=== PATIENT | female | born 1955 | race Caucasian/White ===

== ENCOUNTER 2017-06-28 13:31 | Inpatient (IN) | payer MEDICAID ==
[2017-06-28] MEDS ORDERED: SODIUM CHLORIDE 0.9% 500 ML IV ONE (13:53)
--- NOTE | 2017-06-28 14:00 | Emergency Department Record ---
History of Present Illness - General Chief Complaint: Abdominal Pain Stated Complaint: ABDOMINAL PAIN Time Seen by Provider: 06/28/17 13:49 Source: Patient Mode of Arrival: Ambulatory Limitations: No limitations - History of Present Illness Initial Comments: The patient is here due to a 2 week hx of LLQ cramping intermittent AP. The pain waxes and wanes. She denies any nausea, vomiting, diarrhea or dysuria with the pain. She also states she had a fever last night but that today it is better. The patient denies any hx of similar issues or problems and has had no previous abdominal surgeries. MD Complaint: Abdominal pain Onset/Timin -: Days(s) Radiation: LLQ Quality: Cramping, Sharp, Stabbing Associated Symptoms: Chills, Fever - Related Data Home Medications Medication Instructions Recorded Confirmed Last Taken Ibuprofen 200 mg Tablet [Motrin] 3 tab PO Q6H PRN 06/28/17 06/28/17 Unknown Allergies Allergy/AdvReac Type Severity Reaction Status Date / Time morphine Allergy Severe ANAPHYLAXIS Verified 06/28/17 17:56 codeine Allergy Intermediate NAUSEA AND Verified 06/28/17 17:56 VOMITING Travel Screening - Travel/Exposure Within Last 30 Days Have you traveled within the last 30 days?: No - Travel/Exposure Within Last Year Have you traveled outside the [place] in the last year?: No - Additonal Travel Details Have you been exposed to anyone with a communicable illness?: No - Travel Symptoms Symptom Screening: None Review of Systems Constitutional: Denies: Chills, Fever Eyes: Denies: Eye discharge ENT: Denies: Congestion Respiratory: Denies: Cough, Dyspnea Past Medical History - SOCIAL HISTORY Smoking Status: Current every day smoker Alcohol Use: None Drug Use: None - RESPIRATORY Hx Respiratory Disorders: No - CARDIOVASCULAR Hx Cardio Disorders: Yes Hx Hypertension: Yes Comment:: angio plasty and stent in 2009 - NEURO Hx Neuro Disorders: No - GI Hx GI Disorders: Yes Hx Abdominal Pain: Yes - Hx Genitourinary Disorders: No - ENDOCRINE Hx Endocrine Disorders: No - MUSCULOSKELETAL Hx Musculoskeletal Disorders: No - PSYCH Hx Psych Problems: No - HEMATOLOGY/ONCOLOGY Hx Hematology/Oncology Disorders: No Family Medical History Any Significant Family History?: Yes Hx Cancer: Father *Cancer Comment: father had lung cancer Hx Heart Disease: Father *Heart Comment: father had open heart sx Hx Resp Disorders: Mother *Resp Comment: copd Physical Exam - General General Appearance: Alert, Oriented x3, Cooperative, No acute distress - Head Head exam: Atraumatic, Normocephalic, Normal inspection - Eye Eye exam: Normal appearance, PERRL - Neck Neck exam: Normal inspection, Full ROM. negative: Tenderness - Respiratory Respiratory exam: Normal lung sounds bilaterally. negative: Respiratory distress - Cardiovascular Cardiovascular Exam: Regular rate, Normal rhythm, Normal heart sounds - GI/Abdominal GI/Abdominal exam: Soft, Normal bowel sounds, Tenderness (There is very mild LLQ abdominal pain to palpation with no guarding or rebound.). negative: Distended, Guarding, Rebound, Rigid - Extremities Extremities exam: Normal inspection, Full ROM, Normal capillary refill. negative: Tenderness Course Vital Signs 06/28/17 13:37 Temperature 97.5 F L Pulse Rate 91 H Respiratory 18 Rate Blood Pressure 151/69 Pulse Ox 99 - Reevaluation(s) Reevaluation #1: The patient is doing better. She denies any need for any pain medicines at this time. I did discuss the CT results with her and the need for hospital admission and she did agree to the plan. 06/28/17 15:46 Reevaluation #2: I did discuss the case with Dr. Montes and he will consult on the case. He will review the CT with IR and possibly have the patient transferred [place] [facility] [place] if needed. I also did discuss the case with Hattie AGUERO) and she does accept the admission for Dr. Robertson. 06/28/17 16:04 06/28/17 17:32 Medical Decision Making - Data Complexity MDM Data: Labs Ordered and/or Reviewed, X-Ray Ordered and/or Reviewed - Lab Data Result diagrams: 06/28/17 13:53 06/28/17 12:31 - Radiology Data Radiology results: Report reviewed (CT: Sigmoid Diverticulitis with possible abscess deep in pelvis up to 3cm at the widest area. Neg for perforation.) Disposition Disposition: Admit Clinical Impression: Diverticulitis Disposition: Still a Patient at [facility] Decision to Admit: Admit from ER Decision to Admit Date: 06/28/17 Decision to Admit Time: 16:07 Accepting Physician: Ailyn Time Discussed w/Accepting Physician: 16:07 Condition: (2) Stable Time of Disposition: 16:07 Quality - Quality Measures Quality Measures: N/A - Blood Pressure Screening View Details: Yes Does Patient Have Any of the Following: No Blood Pressure Classification: Hypertensive Reading Systolic Measurement: 151 Diastolic Measurement: 69 Screening for High Blood Pressure: < First Hypertensive BP, F/U Documented > [ [id number]] First Hypertensive Follow-up Interventions: Referral to alternative/primary care provider.
[2017-06-28] MEDS ORDERED: KETOROLAC 30 MG/ML VIAL IVP ONE (14:19)
[2017-06-28] MEDS ORDERED: METRONIDAZOLE IVPB 500 MG/100 ML BAG IVPB ONE (15:24)
[2017-06-28] MEDS ORDERED: CEFTRIAXONE SODIUM 1 GM in 0.9 % SODIUM CHLORIDE 100ML 100 ML IVPB ONE (15:24)
[2017-06-28] MEDS ORDERED: ONDANSETRON HCL IV 4 MG/2 ML VIAL IVP PRN (17:20)
[2017-06-28] MEDS ORDERED: 0.9 % SODIUM CHLORIDE 1000ML 1,000 ML IV PRN (17:20)
[2017-06-28] MEDS ORDERED: KETOROLAC 30 MG/ML VIAL IVP PRN (17:20)
[2017-06-28] MEDS: ACETAMINOPHEN 500 MG TABLET PO PRN (18:09)
[2017-06-28] MEDS ORDERED: NICOTINE POLACRILEX 2 MG GUM BC PRN (18:36)
[2017-06-29] MEDS: ACETAMINOPHEN 500 MG TABLET PO PRN ×5 (00:11→19:40)
[2017-06-29] MEDS: METRONIDAZOLE IVPB 500 MG/100 ML BAG IVPB SCH ×3 (00:12→16:02)
[2017-06-29] MEDS ORDERED: CEFTRIAXONE SODIUM 1 GM in 0.9 % SODIUM CHLORIDE 100ML 100 ML IVPB SCH (03:00)
[2017-06-29 06:47] LABS: BASO % 0.3 % (0-6); EOS % 1.4 % (0-6); GRAN % 74.2 % (47-80); HEMATOCRIT 37.3 % (35.0-47.0); HEMOGLOBIN 11.7 gm/dl (11.6-16.0); LYMPH % 14.6 % (16-45); MEAN CELL VOLUME 93.3 fl (81-97); MEAN CORPUSCULAR HEMOGLOBIN 29.3 pg (27-33); MEAN CORPUSCULAR HGB CONC 31.4 g/dl (32-36); MEAN PLATELET VOLUME 9.8 fl (7.4-10.4); MONO % 9.5 % (0-9); PLATELET COUNT 343 K/uL (130-400); RED CELL DISTRIBUTION WIDTH 12.5 % (11.5-14.5)
[2017-06-29 07:04] LABS: BLOOD UREA NITROGEN 6 mg/dL (8-23); CREATININE 0.5 mg/dL (0.5-0.9); EST GLOMERULAR FILTRATION RATE > 60 mL/min; GLUCOSE,RANDOM 94 mg/dL (74-109)
--- NOTE | 2017-06-29 07:36 | CT SCAN REPORT ---
EXAM: CT OF THE ABDOMEN AND PELVIS WITH CONTRAST HISTORY: LEFT LOWER QUADRANT PAIN WITH INTERMITTENT LOW GRADE FEVER AND CHILLS. TECHNIQUE: Contrast enhanced helical CT examination of the abdomen and pelvis was performed including delayed images through the kidneys with 100 ml of Omnipaque 300 utilized. Comparison: Same day two views of the abdomen. FINDINGS: Mild dependent atelectasis is present within the lung bases, left greater than right. The visualized lung rose are otherwise clear. No pleural or pericardial effusion. The heart is not enlarged. The liver, spleen, pancreas, adrenal glands, and kidneys are normal in appearance. The gallbladder is unremarkable. No biliary ductal dilatation is demonstrated. The portal vein is patent. There is diffuse atherosclerosis without gross aneurysmal dilatation though there is mild ectasia of the infrarenal abdominal aorta measuring 2.4 cm in maximum diameter. Clinically significant stenosis involving the iliac arteries cannot be excluded. The uterus appears surgically absent. No gross pelvic adenopathy. There is diverticulosis of the left colon most pronounced in the sigmoid region. There is segmental wall thickening of the proximal to mid sigmoid colon with associated mesenteric fat stranding suspicious for colitis/ diverticulitis. There is a walled off fluid collection contiguous with the left margin of the mid sigmoid colon in the left hemipelvis measuring 2.6 x 2.4 x 3.0 cm. This is contiguous with the vaginal cuff and is suspicious for abscess. It has a tiny collection of gas within. This abscess does deform the posterior wall of the urinary bladder. No definite intrinsic urinary bladder abnormality is, however, seen. No lytic or blastic bone lesion. IMPRESSION: 1. DIVERTICULOSIS OF THE LEFT COLON MOST PRONOUNCED IN THE SIGMOID REGION. SEGMENTAL WALL THICKENING OF THE PROXIMAL TO MID SIGMOID COLON CONSISTENT WITH COLITIS/DIVERTICULITIS. THERE IS A PERIDIVERTICULAR ABSCESS PRESENT CONTIGUOUS WITH THE LEFT ASPECT OF THE VAGINAL CUFF AND DEFORMING THE POSTERIOR WALL OF THE URINARY BLADDER MEASURING 2.6 X 2.4 X 3.0 CM. 2. NOT MENTIONED ABOVE IS A PROBABLE SMALL SLIDING TYPE HIATAL HERNIA. 3. MILD DEPENDENT ATELECTASIS. 4. DIFFUSE ATHEROSCLEROSIS. MILD ECTASIA OF THE PROXIMAL INFRARENAL PORTION OF THE ABDOMINAL AORTA MEASURING UP TO 2.4 CM. JOB NUMBER: [id number] MTDD
[2017-06-29] MEDS: ATORVASTATIN 20 MG TABLET PO SCH (10:09)
[2017-06-29] MEDS: ISOSORBIDE MONONITRATE 20 MG TABLET PO SCH ×2 (10:09→21:46)
[2017-06-29] MEDS: ASPIRIN 325 MG TABLET PO SCH (10:09)
[2017-06-29] MEDS: METOPROLOL SUCC 25 MG TAB.ER PO SCH (10:09)
[2017-06-29] MEDS: PANTOPRAZOLE SODIUM IV 40 MG VIAL IV SCH (10:10)
--- NOTE | 2017-06-29 10:52 | History & Physical ---
History of Present Illness - Date of Service Date of Service for History & Physical: 06/29/17 - History of Present Illness Admitting Diagnosis: 1. Sigmoid Diverticulitis with small Abscess. History of Present Illness: 62 yo female admitted diverticulitis. Patient presented to our ED with two weeks of worsening LLQ abd pain. States she went to an urgent care this past weekend and was told she had bladder spasms. Upon presentation, VS stable. Patient tachycardic though afebrile. Unremarkable CBC, CMP. CTA: diverticulosis of left colon especially sigmoid colon. wall thickening to the mid sigmoid suggesting diverticulitis. peridiverticular abscess continuos with left aspect of vaginal cuff and deforming the posterior wall of the urinary bladder. Patient given Toradol for pain. She was started on 1 gm of IV Rocephin Q12H and 500 mg of IV Flagyl Q8H. Admitted for further medical management. 06/29- patient sitting up in bed with family at bedside. states she's feeling much better than when she arrived to the hospital. Reports two weeks of worsening crampy LLQ abd pain. Aggravated by nothing. Alleviated by IV abxs and pain medication. Associated symptoms include fever/ chills prior to arrival. Today she denies fever, chills, n/v, diarrhea, blood in stool, bloating, dysuria, hematuria or uncontrolled pain. States she had a medium sized normal bowel movement this morning and is passing gas. Pain is well controlled with Tylenol Q4H. She's never had a colonosocpy. Denies h/o diverticulitis. PCP: Dr. Sylvain Swartz Travel Screening - Travel/Exposure Within Last 30 Days Have you traveled within the last 30 days?: No - Travel/Exposure Within Last Year Have you traveled outside the [place] in the last year?: No - Additonal Travel Details Have you been exposed to anyone with a communicable illness?: No - Travel Symptoms Symptom Screening: None Review of Systems Constitutional: Denies: Chills, Fever Eyes: Denies: Eye discharge ENT: Denies: Congestion Respiratory: Denies: Cough, Dyspnea, Wheezes Cardiovascular: Denies: Chest pain Gastrointestinal: Reports: Abdominal pain (LLQ). Denies: Diarrhea, Hematemesis , Hematochezia, Melena, Nausea, Vomiting Genitourinary: Denies: Dysuria, Hematuria Musculoskeletal: Denies: Back pain Skin: Denies: Change in color Neurological: Denies: Headache, Weakness Past Medical History - SOCIAL HISTORY Smoking Status: Current every day smoker Alcohol Use: None Drug Use: None - RESPIRATORY Hx Respiratory Disorders: No - CARDIOVASCULAR Hx Cardio Disorders: Yes Hx Hypertension: Yes Comment:: angio plasty and stent in 2009 - NEURO Hx Neuro Disorders: No - GI Hx GI Disorders: Yes Hx Abdominal Pain: Yes - Hx Genitourinary Disorders: No - ENDOCRINE Hx Endocrine Disorders: No - MUSCULOSKELETAL Hx Musculoskeletal Disorders: No - PSYCH Hx Psych Problems: No - HEMATOLOGY/ONCOLOGY Hx Hematology/Oncology Disorders: No Family Medical History Any Significant Family History?: Yes Hx Cancer: Father *Cancer Comment: father had lung cancer Hx Heart Disease: Father *Heart Comment: father had open heart sx Hx Resp Disorders: Mother *Resp Comment: copd H&P Meds/Allergies - Allergies Allergies: Allergies Allergy/AdvReac Type Severity Reaction Status Date / Time morphine Allergy Severe ANAPHYLAXIS Verified 06/28/17 17:56 codeine Allergy Intermediate NAUSEA AND Verified 06/28/17 17:56 VOMITING - Home Medications Home Medications Medication Instructions Recorded Confirmed Last Taken Ibuprofen 200 mg Tablet [Motrin] 3 tab PO Q6H PRN 06/28/17 06/28/17 Unknown - Active Medications Active Medications: Current Medications Acetaminophen (Tylenol 500mg Tab) 500 mg PO Q6H PRN PRN Reason: PAIN/TEMP Last Admin: 06/29/17 10:09 Dose: 500 mg Aspirin (Aspirin, Regular) 325 mg PO DAILY [facility] Last Admin: 06/29/17 10:09 Dose: 325 mg Atorvastatin Calcium (Lipitor) 80 mg PO DAILY [facility] Last Admin: 06/29/17 10:09 Dose: 80 mg Sodium Chloride () 1,000 mls @ 100 mls/hr IV .Q10H PRN PRN Reason: LARGE VOLUME IV Ceftriaxone Sodium 1 gm/ (Sodium Chloride) 100 mls @ 200 mls/hr IVPB Q12H [facility] Stop: 07/04/17 03:01 Last Infusion: 06/29/17 03:33 Dose: Infused Metronidazole/Sodium Chloride (Flagyl) 500 mg in 100 mls @ 100 mls/hr IVPB Q8H [facility] Stop: 07/04/17 00:01 Last Infusion: 06/29/17 09:00 Dose: Infused Isosorbide Mononitrate (Imdur) 10 mg PO BID [facility] Last Admin: 06/29/17 10:09 Dose: 10 mg Ketorolac Tromethamine (Toradol) 15 mg IVP Q8H PRN PRN Reason: Analgesia Metoprolol Succinate (Toprol Xl) 25 mg PO DAILY [facility] Last Admin: 06/29/17 10:09 Dose: 25 mg Nicotine Polacrilex (Nicotine Gum) 2 mg BC Q1H PRN PRN Reason: Nicotine Craving Ondansetron HCl (Zofran) 4 mg IVP Q4H PRN PRN Reason: NAUSEA Pantoprazole Sodium (Protonix Iv) 40 mg IV DAILY [facility] Last Admin: 06/29/17 10:10 Dose: 40 mg Physical Exam - Vital Signs Vital Signs: Vital Signs - Last 24 Hrs Temp Pulse Resp BP Pulse Ox 06/29/17 10:21 98.8 F 82 18 143/76 95 06/29/17 08:24 16 06/29/17 05:00 98.6 F 89 18 148/73 97 06/28/17 20:44 98.3 F 78 20 125/86 96 06/28/17 19:28 99.4 F 06/28/17 19:00 98.9 F 81 16 132/83 95 06/28/17 17:20 89 18 154/73 94 L - General General Appearance: Alert, Oriented x3, Cooperative, No acute distress Limitations: No limitations - Head Head exam: Atraumatic, Normocephalic, Normal inspection - Eye Eye exam: Normal appearance, PERRL - ENT ENT exam: Normal exam Ear exam: Normal external inspection - Neck Neck exam: Normal inspection, Full ROM. negative: Tenderness - Respiratory Respiratory exam: Normal lung sounds bilaterally. negative: Respiratory distress - Cardiovascular Cardiovascular Exam: Regular rate, Normal rhythm, Normal heart sounds - GI/Abdominal GI/Abdominal exam: Soft, Normal bowel sounds, Tenderness (continued very mild LLQ abdominal pain to palpation with no guarding or rebound.). negative: Distended, Guarding, Rebound, Rigid - Extremities Extremities exam: Normal inspection, Full ROM, Normal capillary refill. negative: Tenderness Results - Labs Result Diagrams: 06/29/17 06:21 06/29/17 06:21 Labs Last 24 Hours: Laboratory Results - last 24 hr 06/29/17 06/29/17 06:21 06:21 WBC 12.0 RBC 4.00 Hgb 11.7 Hct 37.3 MCV 93.3 MCH 29.3 MCHC 31.4 L RDW 12.5 Plt Count 343 MPV 9.8 Gran % 74.2 Lymphocytes % 14.6 L Monocytes % 9.5 H Eosinophils % 1.4 Basophils % 0.3 Sodium 140 Potassium 3.8 Chloride 103 Carbon Dioxide 26.0 Anion Gap 11.0 BUN 6 L Creatinine 0.5 Estimated GFR > 60 Random Glucose 94 Calcium 8.3 L VTE H&P Assessment - Risk for VTE Risk for VTE: Yes Risk Level: Moderate Risk Assessment Date: 06/29/17 Risk Assessment Time: 10:00 VTE Orders Placed or Will Be Placed: Yes Plan - Inpatient Certification Inpatient Certification: Admit to inpatient care: Based on my medical assessment, after consideration of patient's risk factors (age, co-morbidities and patient presenting symptoms and acuity), I expect that this patient will remain in the hospital greater than or equal to two midnights and that the services needed warrant inpatient care because: Patient Risk Factors: [diverticulitis, significant pain, general surgery] Estimated length of stay: [2-3 nights] The patient may reasonably be expected to be discharged or transferred to a hospital within 96 hours after admission to [facility]. Services needed: [IV antibiotics, close monitoring, gen surgery ] Post hospital care (if known): [home, self care] I certify that my determination is in accordance with my understanding of Medicare requirements for reasonable and necessary inpatient services. 06/29/17 11:03 - Detailed Diagnosis and Plan (1) Diverticulitis Current Visit: Yes Status: Acute Base Code: K57.92 - DVTRCLI OF INTEST, PART UNSP, W/O PERF OR ABSCESS W/O BLEED Comment: 06/29 - CTA: diverticulosis of left colon especially sigmoid colon. wall thickening to the mid sigmoid suggesting diverticulitis. peridiverticular abscess continuos with left aspect of vaginal cuff and deforming the posterior wall of the urinary bladder. - continue IV Rocephin and Flagyl - Dr. Montes made aware of patient and reviewed CT scan w/ radiology. Continue IV antbiotics. REPEAT CTA in 1 week - colonoscopy 6-8 weeks following diverticulitis - Tylenol as needed for pain - repeat CBC, BMP, CRP in am - CLD as tolerated - monitor for fever, increased pain or WBC (2) DVT prophylaxis Current Visit: Yes Status: Acute Base Code: [id number] - Comment: 06/29 - lovenox 40 mg sq (3) Full code status Current Visit: Yes Status: Acute Base Code: Z78.9 - OTHER SPECIFIED HEALTH STATUS Comment: 06/29 - FULL CODE
[2017-06-29] MEDS: ENOXAPARIN 40 MG/0.4 ML SYR SQ SCH (11:50)
[2017-06-29] MEDS: CEFTRIAXONE SODIUM 1 GM in 0.9 % SODIUM CHLORIDE 100ML 100 ML IVPB SCH ×2 (15:09→21:47)
[2017-06-30] MEDS: METRONIDAZOLE IVPB 500 MG/100 ML BAG IVPB SCH ×2 (01:00→08:09)
[2017-06-30 06:35] LABS: BASO % 0.3 % (0-6); EOS % 1.5 % (0-6); GRAN % 71.7 % (47-80); HEMOGLOBIN 10.9 gm/dl (11.6-16.0); LYMPH % 17.6 % (16-45); MEAN CELL VOLUME 93.3 fl (81-97); MEAN CORPUSCULAR HGB CONC 31.1 g/dl (32-36); MEAN PLATELET VOLUME 9.7 fl (7.4-10.4); MONO % 8.9 % (0-9); PLATELET COUNT 354 K/uL (130-400); RED BLOOD COUNT 3.75 M/uL (3.80-5.40); RED CELL DISTRIBUTION WIDTH 12.7 % (11.5-14.5); WHITE BLOOD COUNT W/O DIFF 9.2 K/uL (4.2-12.2)
[2017-06-30 07:01] LABS: ALB/GLOB RATIO 1.3 (1.1-1.8); ALBUMIN 3.4 g/dL (4.0-5.0); ALKALINE PHOSPHATASE 106 U/L (35-104); ALT/SGPT 9 U/L (<33); AST/SGOT 10 U/L (10.0-35.0); BLOOD UREA NITROGEN 5 mg/dL (8-23); C-REACTIVE PROTEIN 8.98 mg/dL (<0.5); CREATININE 0.6 mg/dL (0.5-0.9); EST GLOMERULAR FILTRATION RATE > 60 mL/min; GLUCOSE,RANDOM 112 mg/dL (74-109); TOTAL PROTEIN 6.1 g/dL (6.6-8.7)
[2017-06-30] MEDS: ASPIRIN 325 MG TABLET PO SCH (09:45)
[2017-06-30] MEDS: ISOSORBIDE MONONITRATE 20 MG TABLET PO SCH (09:45)
[2017-06-30] MEDS: ATORVASTATIN 20 MG TABLET PO SCH (09:46)
[2017-06-30] MEDS: ENOXAPARIN 40 MG/0.4 ML SYR SQ SCH (09:48)
[2017-06-30] MEDS: PANTOPRAZOLE SODIUM IV 40 MG VIAL IV SCH (09:49)
[2017-06-30] MEDS: CEFTRIAXONE SODIUM 1 GM in 0.9 % SODIUM CHLORIDE 100ML 100 ML IVPB SCH (09:49)
[2017-06-30] MEDS: METOPROLOL SUCC 25 MG TAB.ER PO SCH (09:51)
--- NOTE | 2017-06-30 13:33 | Discharge Summary ---
Providers Discharge Summary Date: 06/30/17 Date of admission: 06/28/17 17:04 Attending physician: ALANA ROBERTSON Primary care physician: MARCY AGGARWAL D.O. Physical Exam - Vital Signs Vital Signs: Vital Signs - Last 24 Hrs Temp Pulse Resp BP Pulse Ox 06/30/17 12:00 97.8 F 69 16 119/61 97 06/30/17 08:00 98.1 F 70 18 140/78 96 06/30/17 04:00 81 18 143/77 94 L 06/30/17 00:00 87 18 140/75 95 06/29/17 21:00 18 06/29/17 20:00 98.2 F 71 18 141/68 96 06/29/17 15:00 98.1 F 72 18 142/72 99 - General General Appearance: Alert, Oriented x3, Cooperative, No acute distress Limitations: No limitations - Head Head exam: Atraumatic, Normocephalic, Normal inspection - Eye Eye exam: Normal appearance, PERRL - ENT ENT exam: Normal exam Ear exam: Normal external inspection - Neck Neck exam: Normal inspection, Full ROM. negative: Tenderness - Respiratory Respiratory exam: Normal lung sounds bilaterally. negative: Respiratory distress - Cardiovascular Cardiovascular Exam: Regular rate, Normal rhythm, Normal heart sounds Peripheral Pulses: 3+: Radial (R), Radial (L), Dorsalis Pedis (R), Dorsalis Pedis (L) - GI/Abdominal GI/Abdominal exam: Soft, Normal bowel sounds. negative: Distended, Guarding, Rebound, Rigid - Extremities Extremities exam: Normal inspection, Full ROM, Normal capillary refill. negative: Tenderness Hospitalization - Hospitalization Admission Diagnosis: 1. Sigmoid Diverticulitis with small Abscess. - Problem List/Discharge Diagnosis (1) Diverticulitis Status: Acute Base Code: K57.92 - DVTRCLI OF INTEST, PART UNSP, W/O PERF OR ABSCESS W/O BLEED Comment: 06/30/17 - CTA: diverticulosis of left colon especially sigmoid colon. wall thickening to the mid sigmoid suggesting diverticulitis. peridiverticular abscess continuos with left aspect of vaginal cuff and deforming the posterior wall of the urinary bladder. - D/C IV Rocephin and Flagyl change to PO, labs ok, WBC trending down. - Surgery following. CTA in one week, colonoscopy 6-8 weeks (2) Full code status Status: Acute Base Code: Z78.9 - OTHER SPECIFIED HEALTH STATUS Comment: 06/29 - FULL CODE (3) DVT prophylaxis Status: Acute Base Code: - Comment: 06/30/17 - lovenox 40 mg sq - Hospitalization Course Disposition: Home, Self-Care Hospital Course: 62 yo female admitted diverticulitis. Patient presented to our ED with two weeks of worsening LLQ abd pain. States she went to an urgent care this past weekend and was told she had bladder spasms. Upon presentation, VS stable. Patient tachycardic though afebrile. Unremarkable CBC, CMP. CTA: diverticulosis of left colon especially sigmoid colon. wall thickening to the mid sigmoid suggesting diverticulitis. peridiverticular abscess continuos with left aspect of vaginal cuff and deforming the posterior wall of the urinary bladder. Patient given Toradol for pain. She was started on 1 gm of IV Rocephin Q12H and 500 mg of IV Flagyl Q8H. Admitted for further medical management. 06/29- patient sitting up in bed with family at bedside. states she's feeling much better than when she arrived to the hospital. Reports two weeks of worsening crampy LLQ abd pain. Aggravated by nothing. Alleviated by IV abxs and pain medication. Associated symptoms include fever/ chills prior to arrival. Today she denies fever, chills, n/v, diarrhea, blood in stool, bloating, dysuria, hematuria or uncontrolled pain. States she had a medium sized normal bowel movement this morning and is passing gas. Pain is well controlled with Tylenol Q4H. She's never had a colonosocpy. Denies h/o diverticulitis. 06/30 - The patient is resting comfortably and is able to tolerate soft diet for breakfast without complication. She is continued on antibiotics which have been changed to oral and she has not required any pain medications. Later in the day the patient has been able to tolerate full diet well and is stable for discharge home. I discussed the plan of care and follow up with the patient and her . Colonoscopy is arranged through specialty clinic and she is to follow up in the [facility] within 1-2 weeks. Abnormal Labs: Abnormal Lab Results 06/29/17 06/29/17 06/30/17 Range/Units 06:21 06:21 06:12 RBC 3.75 L (3.80-5.40) M/uL Hgb 10.9 L (11.6-16.0) gm/dl MCHC 31.4 L 31.1 L (32-36) g/dl Lymphocytes % 14.6 L (16-45) % Monocytes % 9.5 H (0-9) % BUN 6 L (8-23) mg/dL Random Glucose (74-109) mg/dL Calcium 8.3 L (8.8-10.2) mg/dL Alkaline Phosphatase (35-104) U/L C-Reactive Protein (<0.5) mg/dL Total Protein (6.6-8.7) g/dL Albumin (4.0-5.0) g/dL 06/30/17 Range/Units 06:12 RBC (3.80-5.40) M/uL Hgb (11.6-16.0) gm/dl MCHC (32-36) g/dl Lymphocytes % (16-45) % Monocytes % (0-9) % BUN 5 L (8-23) mg/dL Random Glucose 112 H (74-109) mg/dL Calcium 8.4 L (8.8-10.2) mg/dL Alkaline Phosphatase 106 H (35-104) U/L C-Reactive Protein 8.98 H (<0.5) mg/dL Total Protein 6.1 L (6.6-8.7) g/dL Albumin 3.4 L (4.0-5.0) g/dL Condition at Discharge: (1) Good Discharge Medications - Discharge Medications Prescriptions: Ciprofloxacin/Ciprofloxa HCl [Ciprofloxacin ER 500 mg Tablet] 500 mg PO DAILY 3 Days #3 tbmp.24hr Metronidazole [Flagyl] 500 mg PO BID 3 Days #6 tablet Home Medications: Ambulatory Orders Aspirin 325 mg PO QD tab 06/28/17 [Last Taken 06/27/17 21:00] Atorvastatin Calcium [Lipitor] 80 mg PO QD tab 06/28/17 [Last Taken 06/27/17 21 :00] Isosorbide Mononitrate 10 mg PO DAILY tab 06/28/17 [Last Taken 06/27/17 21:00] Lopressor 25 mg PO QD tab 06/28/17 [Last Taken 06/27/17 21:00] Ranitidine HCl [Zantac] 150 mg PO Q12H tab 06/28/17 [Last Taken 06/27/17 21:00] Ciprofloxacin/Ciprofloxa HCl [Ciprofloxacin ER 500 mg Tablet] 500 mg PO DAILY 3 Days #3 tbmp.24hr 06/30/17 [Last Taken Unknown] Metronidazole [Flagyl] 500 mg PO BID 3 Days #6 tablet 06/30/17 [Last Taken Unknown] Discharge Plan - Discharge Instructions Activity at Discharge: Increase Activity as Tolerated, Resume Usual Activities As Tolerated Diet at Discharge: Advance to Usual Diet, Low Fat, Low Cholesterol, Other (high fiber) Instructions: Ciprofloxacin (By mouth), Metronidazole (By mouth), Diverticulitis (DC), High Fiber Diet (DC), Abdominal Pain (ED) Additional Instructions: - Follow up with GI for colonoscopy in 4-6 weeks. Schedule with specialty clinic before leaving. High fiber diet. Stop smoking - C follow up for first appt within 5-7 business. Flagyl 500mg twice daily and Cipro once daily for the next [address] Deluca appt. August 19, 2017 at 3:30pm Here at [facility]-phone [phone]. Dr. Robertson appt. July 07, 2017 at 1040-please arrive 15min earlier to complete medical information. Quality Measures - Quality Measures Quality Measures: Documentation of Current Medications in Medical Record, Screening for High Blood Pressure and F/U Documented - Current Medications Quality Measure: Measure #130: Documentation of Current Medications Documentation of Current Medications: <Current Medications Documented/Reviewed> [G8427] - Blood Pressure Screening Quality Measure: Screening for High Blood Pressure and Follow-Up Documented Does Patient Have Any of the Following: Active Dx of HTN Blood Pressure Classification: Hypertensive Reading Systolic Measurement: 151 Diastolic Measurement: 69 Screening for High Blood Pressure: Patient Exclusion, Hx of HTN [G9744] - Elder Abuse Suspicion Index EASI Reference Information: Ari HOROWITZ, Harlan C, Quique D, Kera Pike.Development and validation of a tool to assist physicians identification of elder abuse: The Elder Abuse Suspicion Index (EASI ). Journal of Elder Abuse and Neglect, 2008; 20 (3): 276-300.
== END 2017-06-30 14:15 | disposition home or self-care (01) | DRG 392 ==
LOC: ER 13:31 → MEDSURG 17:04
PROVIDERS: ADMIT Internal Medicine; ATTEND Internal Medicine
DX: K57.00 Diverticulitis of small intestine with perforation and abscess without bleeding (principal); I10 Essential (primary) hypertension; I25.10 Atherosclerotic heart disease of native coronary artery without angina pectoris; F17.210 Nicotine dependence, cigarettes, uncomplicated; Z78.9 Other specified health status
CPT/HCPCS: 74019; 74177; 80048; 80053; 81003; 83690; 85025; 86140; 96361; 96365; 96366; 96375; 99223; 99239; 99285; C9113; J1885

== ENCOUNTER 2017-07-08 14:03 | Emergency (ER) | payer MEDICAID ==
[2017-07-08] MEDS ORDERED: ONDANSETRON HCL IV 4 MG/2 ML VIAL IV ONE (14:29)
[2017-07-08] MEDS ORDERED: 0.9 % SODIUM CHLORIDE 1,000 ML BAG IV ONE (14:29)
[2017-07-08] MEDS ORDERED: ACETAMINOPHEN 1,000 MG/100 ML BTL IVPB ONE (14:30)
[2017-07-08] MEDS ORDERED: KETOROLAC 30 MG/ML VIAL IVP ONE (14:30)
--- NOTE | 2017-07-08 14:31 | Emergency Department Record ---
History of Present Illness - General Chief Complaint: Abdominal Pain Stated Complaint: ABD PAINS Time Seen by Provider: 07/08/17 14:21 Source: Patient Mode of Arrival: Ambulatory Limitations: No limitations - History of Present Illness Initial Comments: 62 yo female presents low abdominal pain. She reports she was diagnosed with diverticulitis on 06/28/17. She additionally had a 2.6 x 2.4 3.0cm peridiverticular abscess. She was treated with Cipro and Flagyl. No drainage occurred at the time of initial evaluation. She states she improved but the pain never resolved. She finished her antibiotics on Tuesday07/03/17. She was seen by her PCP yesterday for a new patient intake. She was diagnosed with a UTI at that time and prescribed antibiotics (Bactrim DS). Her pain has continued to increase today in the lower abdomen. No vomiting but decreased appetite. No diarrhea or blood. MD Complaint: Abdominal pain Onset/Timin -: Days(s) Location: Diffuse, LLQ, RLQ Radiation: None Migration to: No migration Severity: Moderate Quality: Aching, Sharp Consistency: Constant Improves With: Nothing Worsens With: Nothing Associated Symptoms: Denies other symptoms - Related Data Patient : No Previous Rx's Medication Instructions Recorded Ciprofloxacin HCl [Cipro] 500 mg PO Q12HR #14 tablet 07/08/17 Metronidazole [Flagyl] 500 mg PO Q12H #14 tablet 07/08/17 Allergies Allergy/AdvReac Type Severity Reaction Status Date / Time morphine Allergy Severe ANAPHYLAXIS Verified 06/28/17 17:56 codeine Allergy Intermediate NAUSEA AND Verified 06/28/17 17:56 VOMITING Travel Screening - Travel/Exposure Within Last 30 Days Have you traveled within the last 30 days?: No Review of Systems Constitutional: Reports: Malaise, Weakness. Denies: Chills, Fever Eyes: Denies: Eye discharge ENT: Denies: Congestion, Throat pain Respiratory: Denies: Cough, Dyspnea, Hemoptysis Cardiovascular: Denies: Chest pain, Syncope Endocrine: Reports: Fatigue Gastrointestinal: Reports: As per HPI, Abdominal pain, Nausea. Denies: Constipation, Diarrhea, Hematemesis, Hematochezia, Melena, Vomiting Genitourinary: Denies: Dysuria, Hematuria, Urgency Musculoskeletal: Denies: Arthralgia, Back pain, Neck pain Skin: Denies: Bruising, Change in color, Rash Neurological: Denies: Headache, Numbness, Weakness Psychiatric: Denies: Anxiety Hematological/Lymphatic: Denies: Blood Clots, Easy bleeding, Easy bruising, Swollen glands Past Medical History - SOCIAL HISTORY Smoking Status: Current every day smoker Alcohol Use: None Drug Use: None - RESPIRATORY Hx Respiratory Disorders: No - CARDIOVASCULAR Hx Cardio Disorders: Yes Comment:: angio plasty and stent in 2009 - NEURO Hx Neuro Disorders: No - GI Hx GI Disorders: Yes Hx Diverticulitis: Yes - Hx Genitourinary Disorders: Yes Hx UTI: Yes - ENDOCRINE Hx Endocrine Disorders: No - MUSCULOSKELETAL Hx Musculoskeletal Disorders: No - PSYCH Hx Psych Problems: No - HEMATOLOGY/ONCOLOGY Hx Hematology/Oncology Disorders: No Family Medical History Any Significant Family History?: No Physical Exam - General General Appearance: Alert, Oriented x3, Cooperative, No acute distress Limitations: No limitations - Head Head exam: Normal inspection - Eye Eye exam: Normal appearance. negative: Conjunctival injection, Scleral icterus - ENT ENT exam: Normal exam Ear exam: Normal external inspection Nasal Exam: Normal inspection Mouth exam: Normal external inspection Teeth exam: Normal inspection - Neck Neck exam: Normal inspection, Full ROM. negative: Tenderness - Respiratory Respiratory exam: Normal lung sounds bilaterally. negative: Respiratory distress - Cardiovascular Cardiovascular Exam: Regular rate, Normal rhythm, Normal heart sounds - GI/Abdominal GI/Abdominal exam: Soft, Guarding, Tenderness (tender in the suprapubic area moderately, her abdomen is very soft. It is non tender in the upper abdomen). negative: Distended - Rectal Rectal exam: Deferred - exam: Deferred - Extremities Extremities exam: Normal inspection, Full ROM, Normal capillary refill. negative: Tenderness - Back Back exam: Reports: Normal inspection, Full ROM - Neurological Neurological exam: Alert, Normal gait, Oriented X3 - Psychiatric Psychiatric exam: Normal affect, Normal mood - Skin Skin exam: Dry, Intact, Normal color, Warm Course Vital Signs 07/08/17 14:07 Temperature 98.1 F Pulse Rate 81 Respiratory 20 Rate Blood Pressure 193/89 Pulse Ox 96 - Reevaluation(s) Reevaluation #1: 07/08/17 15:05 The CBC was reviewed The WBC count is 12.2 07/08/17 15:17 No acute changes on the CMP or Lipase 07/08/17 16:29 UA small LE, few bacteria, 6-10 WBC 07/08/17 17:[address] scan was reviewed. Diverticulitis was again noted. The abscess is improved from 2.6 to 1.2cm. No FA. I discussed the CT findings with Dr Montes. The size is not drainable and additionally not indicated since it is significantly small. He advises medical management. The patient was informed. She is feeling well, no fever, well controlled pain. She prefers outpatient treatment. This was discussed with Dr Montes and Dr Robertson. Given she is well appearing, no vomiting, no fever, normal WBC count she can be treated outpatient with close follow up first of the week. She is reliable and will return to the ED if any concerns arise. Cipro and Flagyl were written for 7 more days. Medical Decision Making - Lab Data Result diagrams: 07/08/17 14:45 07/08/17 14:45 Disposition Disposition: Discharge Clinical Impression: Diverticulitis Disposition: Home, Self-Care Condition: (1) Good Instructions: Diverticulitis (ED), Diverticulitis Diet (ED) Additional Instructions: Return immediately to the ED if you have any fever, pain,vomiting or new concerns Take the Cipro and Flagyl as directed Follow up first of the week with Dr Robertson for a recheck Prescriptions: Ciprofloxacin HCl [Cipro] 500 mg PO Q12HR #14 tablet Metronidazole [Flagyl] 500 mg PO Q12H #14 tablet Forms: Patient Portal Access Time of Disposition: 17:31 Quality - Quality Measures Quality Measures: N/A - Blood Pressure Screening Does Patient Have Any of the Following: No Blood Pressure Classification: Pre-Hypertensive BP Reading Systolic Measurement: 193 Diastolic Measurement: 89 Screening for High Blood Pressure: < Pre-Hypertensive BP, F/U Documented > [ G8950] Pre-Hypertensive Follow-up Interventions: Referral to alternative/primary care provider.
[2017-07-08 14:56] LABS: BASO % 0.2 % (0-6); EOS % 1.2 % (0-6); GRAN % 78.5 % (47-80); HEMATOCRIT 38.7 % (35.0-47.0); HEMOGLOBIN 12.2 gm/dl (11.6-16.0); MEAN CELL VOLUME 92.8 fl (81-97); MEAN CORPUSCULAR HEMOGLOBIN 29.3 pg (27-33); MEAN CORPUSCULAR HGB CONC 31.5 g/dl (32-36); MEAN PLATELET VOLUME 9.7 fl (7.4-10.4); MONO % 8.1 % (0-9); PLATELET COUNT 433 K/uL (130-400); RED BLOOD COUNT 4.17 M/uL (3.80-5.40); WHITE BLOOD COUNT W/O DIFF 12.2 K/uL (4.2-12.2)
[2017-07-08 15:07] LABS: PARTIAL THROMBOPLASTIN TIME 25.3 SECONDS (24.5-39.1); PROTHROMBIN TIME (PATIENT) 10.6 SECONDS (9.5-12.1)
[2017-07-08 15:12] LABS: ALBUMIN 3.6 g/dL (4.0-5.0); ALKALINE PHOSPHATASE 109 U/L (35-104); ALT/SGPT 18 U/L (<33); AST/SGOT 14 U/L (10.0-35.0); BLOOD UREA NITROGEN 5 mg/dL (8-23); CREATININE 0.5 mg/dL (0.5-0.9); EST GLOMERULAR FILTRATION RATE > 60 mL/min; GLUCOSE,RANDOM 134 mg/dL (74-109); TOTAL PROTEIN 6.7 g/dL (6.6-8.7)
[2017-07-08 15:13] LABS: ALB/GLOB RATIO 1.2 (1.1-1.8); LIPASE 42 U/L (13-60)
[2017-07-08 16:11] LABS: URINE APPEARANCE CLEAR; URINE BILIRUBIN NEGATIVE (NEGATIVE); URINE BLOOD NEGATIVE (NEGATIVE); URINE COLOR YELLOW; URINE GLUCOSE (UA) NEGATIVE (NEGATIVE); URINE KETONE NEGATIVE (NEGATIVE); URINE LEUKOCYTE ESTERASE SMALL (NEGATIVE); URINE NITRITE NEGATIVE (NEGATIVE); URINE PROTEIN NEGATIVE (NEGATIVE); URINE UROBILINOGEN 0.2 E.U./dL (0.20 - 1.00)
[2017-07-08] MEDS ORDERED: METRONIDAZOLE 250 MG TABLET PO ONE (17:28)
[2017-07-08] MEDS ORDERED: CIPROFLOXACIN HCL 500 MG TABLET PO ONE (17:28)
--- NOTE | 2017-07-09 12:06 | CT SCAN REPORT ---
DATE: 07/08/2017. EXAM: CT OF THE ABDOMEN AND PELVIS WITH CONTRAST. COMPARISON: 06/28/2017. HISTORY: Lower abdominal pain and cramping. TECHNIQUE: Routine CT images of the abdomen and pelvis were obtained following intravenous administration of contrast. Amount and type of contrast in the medical record. FINDINGS: The visualized lung bases are unremarkable. The liver, gallbladder, pancreas, spleen, and adrenals have a normal appearance. The kidneys enhance and excrete contrast normally. There appears to be thinning of the anteroinferior left renal cortex. Small hiatal hernia. There is redemonstration of sigmoid diverticulitis with small diverticular abscess anteriorly interposed between the sigmoid colon and bladder. The size of the abscess has decreased compared to previous examination and now measures approximately 1.2 x 1.0 cm compared to 2.6 cm previously. Please note this abscess is also immediately adjacent to the left aspect of the vaginal cuff. There is no evident gas within the bladder. Bowel loops are otherwise unremarkable. There is aortic atherosclerotic calcification and ectasia without aneurysmal dilation. No acute osseous abnormality. IMPRESSION: 1. REDEMONSTRATION OF SIGMOID DIVERTICULITIS WITH SMALL DIVERTICULAR ABSCESS, THOUGH THIS APPEARS IMPROVED COMPARED TO PREVIOUS EXAMINATION. 2. SMALL HIATAL HERNIA. 3. AORTIC ECTASIA. 4. OTHER CHRONIC FINDINGS ABOVE. JOB NUMBER: [id number] [facility]
== END 2017-07-08 17:49 | disposition home or self-care (01) ==
LOC: ER 14:03
DX: K57.20 Diverticulitis of large intestine with perforation and abscess without bleeding (principal); F17.210 Nicotine dependence, cigarettes, uncomplicated
CPT/HCPCS: 99284 ×2; 96374; 96375; 83690; 85025; 85730; 85610; 80053; 81003; 74177; Q9967; J1885; J2405; J7030

== ENCOUNTER 2017-08-10 15:51 | Emergency (ER) | payer MEDICAID ==
[2017-08-10] MEDS ORDERED: DIPHENHYDRAMINE HCL IV 50 MG/ML VIAL IM ONE (16:16)
[2017-08-10] MEDS ORDERED: METHYLPREDNISOLONE PF 125MG/VIAL IM ONE (16:16)
--- NOTE | 2017-08-10 16:18 | Emergency Department Record ---
History of Present Illness - General Chief complaint: Hives Stated complaint: HIVES Time Seen by Provider: 08/10/17 16:06 Source: Patient Mode of Arrival: Ambulatory Limitations: No limitations - History of Present Illness Initial comments: The patient is here due to developing a pruritic rash to mainly her arms and legs off and on for the last 3 days. She has been on multiple antibiotics chronically due to diverticular dz and most recently about a week ago started on Keflex. The patient did go to [facility] in [place] 2 days ago due to the hives and was treated with a steroid shot and discharged. She was better for a day but now is having more itching. She denies any trouble swallowing, trouble talking, SOB, LAUREN, or any pain. MD complaint: Rash Onset/Timin -: Days(s) Hx Tetanus Toxoid Vaccination: Yes Year of Tetanus Vaccination: 2009 Location: Generalized Quality: Other Consistency: Constant Improves with: None Worsens with: None Context: None Associated symptoms: Itching Treatments Prior to Arrival: Benadryl - Related Data Home Medications Medication Instructions Recorded Confirmed Last Taken Metoprolol Tartrate [Lopressor] 25 mg PO DAILY 08/10/17 08/10/17 Unknown Ondansetron [Zofran Odt] 4 mg PO ASDIR 08/10/17 08/10/17 Unknown Tramadol HCl [Ultram] 50 mg PO ASDIR 08/10/17 08/10/17 Unknown Previous Rx's Medication Instructions Recorded Metronidazole [Flagyl] 500 mg PO TID #30 tablet 08/01/17 Prednisone [Prednisone 20Mg] 40 mg PO DAILY #10 tab 08/10/17 Allergies Allergy/AdvReac Type Severity Reaction Status Date / Time morphine Allergy Severe ANAPHYLAXIS Verified 08/01/17 11:07 codeine Allergy Intermediate NAUSEA AND Verified 08/01/17 11:07 VOMITING moxifloxacin [From Avelox] Allergy HIVES Verified 08/10/17 16:05 Travel Screening - Travel/Exposure Within Last 30 Days Have you traveled within the last 30 days?: No Review of Systems Constitutional: Denies: Chills, Fever, Other ENT: Denies: Congestion Respiratory: Denies: Cough, Dyspnea Past Medical History - SOCIAL HISTORY Smoking Status: Current every day smoker - RESPIRATORY Hx Respiratory Disorders: No - CARDIOVASCULAR Hx Cardio Disorders: Yes Comment:: angio plasty and stent in 2009 - NEURO Hx Neuro Disorders: No - GI Hx GI Disorders: Yes Hx Diverticulitis: Yes Hx Nausea/Vomiting: Yes - Hx Genitourinary Disorders: Yes Hx UTI: Yes - ENDOCRINE Hx Endocrine Disorders: No - MUSCULOSKELETAL Hx Musculoskeletal Disorders: No - PSYCH Hx Psych Problems: No - HEMATOLOGY/ONCOLOGY Hx Hematology/Oncology Disorders: No Family Medical History Any Significant Family History?: No Physical Exam - General General Appearance: Alert, Oriented x3, Cooperative, No acute distress - Head Head exam: Atraumatic, Normocephalic, Normal inspection - Eye Eye exam: Normal appearance, PERRL - ENT Throat exam: Normal inspection. negative: Tonsillar erythema, Tonsillar exudate - Neck Neck exam: Normal inspection, Full ROM. negative: Tenderness - Respiratory Respiratory exam: Normal lung sounds bilaterally. negative: Respiratory distress - Cardiovascular Cardiovascular Exam: Regular rate, Normal rhythm, Normal heart sounds - GI/Abdominal GI/Abdominal exam: Soft, Normal bowel sounds. negative: Tenderness - Extremities Extremities exam: Normal inspection, Full ROM, Normal capillary refill. negative: Tenderness - Neurological Neurological exam: Alert, Normal gait. negative: Abnormal gait, Motor sensory deficit - Skin Skin exam: Rash, Urticaria (There is a faint urticarial blanching macular papular erythematous rash to the arms, legs and minimally the trunk.). negative : Petechiae Course Vital Signs 08/10/17 15:59 Temperature 98.0 F Pulse Rate 91 H Respiratory 18 Rate Blood Pressure 128/70 Pulse Ox 95 - Reevaluation(s) Reevaluation #1: The patient is doing very well at this time. Her itching is much improved and the rash is improving. She denies any trouble swallowing or any trouble breathing. On exam the rash does appear much improved and the patient would like to go home. 08/10/17 17:04 Disposition Disposition: Discharge Clinical Impression: Urticaria Disposition: Home, Self-Care Condition: (2) Stable Instructions: Urticaria (ED) Additional Instructions: Please continue the Benadryl for the itching. Please take the Prednisone starting tomorrow and do not take any more Keflex. Please see your Surgeon as scheduled and return to the ER for any worsening symptoms. Prescriptions: Prednisone [Prednisone 20Mg] 40 mg PO DAILY #10 tab Forms: Patient Portal Access Time of Disposition: 17:07 Quality - Quality Measures Quality Measures: N/A - Blood Pressure Screening View Details: Yes Does Patient Have Any of the Following: No Blood Pressure Classification: Pre-Hypertensive BP Reading Systolic Measurement: 129 Diastolic Measurement: 62 Screening for High Blood Pressure: < Pre-Hypertensive BP, F/U Documented > [ G8950] Pre-Hypertensive Follow-up Interventions: Referral to alternative/primary care provider.
== END 2017-08-10 17:17 | disposition home or self-care (01) ==
LOC: ER 15:51
DX: L50.9 Urticaria, unspecified (principal); F17.210 Nicotine dependence, cigarettes, uncomplicated
CPT/HCPCS: 96372; 99283; J1200; J2930

== ENCOUNTER 2017-09-05 06:35 | Emergency (ER) | payer MEDICAID ==
[2017-09-05] MEDS ORDERED: KETOROLAC 30 MG/ML VIAL IVP ONE (06:53)
[2017-09-05] MEDS ORDERED: ONDANSETRON HCL IV 4 MG/2 ML VIAL IVP ONE ×2 (06:53→10:04)
--- NOTE | 2017-09-05 06:59 | Emergency Department Record ---
History of Present Illness - General Chief complaint: Vomiting Stated complaint: VOMITING Time Seen by Provider: 09/05/17 06:52 Source: Patient Mode of Arrival: Ambulatory Limitations: No limitations - History of Present Illness Initial comments: 62 yo female presents to ED for evaluation of nausea, vomiting, and abdominal pain symptoms that began last night. Patient was undergoing bowel prep for a colonoscopy this morning with Dr. Robins when her symptoms began last night . Patient reports recent placement of a surgical drain for diverticulitis with subsequent abscess formation 8 weeks ago. Patient denies fever symptoms, denies previous surgery other than hysterectomy. MD complaint: Abdominal pain, Nausea, Vomiting Onset/Timin -: Hour(s) Associated Abdominal Pain: Yes Location: Diffuse Radiation: None Severity: Moderate Quality: Aching Consistency: Constant Improves with: None Worsens with: None - Related Data Allergies Allergy/AdvReac Type Severity Reaction Status Date / Time cephalexin monohydrate Allergy Severe HIVES Unverified 08/26/17 10:33 [From Keflex] morphine Allergy Severe ANAPHYLAXIS Verified 08/01/17 11:07 codeine Allergy Intermediate NAUSEA AND Verified 08/01/17 11:07 VOMITING moxifloxacin [From Avelox] Allergy HIVES Unverified 08/26/17 10:32 Review of Systems Constitutional: Reports: Chills. Denies: Fever, Malaise, Night sweats Eyes: Denies: Eye discharge, Eye pain ENT: Denies: Congestion, Ear pain, Epistaxis Respiratory: Denies: Cough, Dyspnea Cardiovascular: Denies: Chest pain, Dyspnea on exertion Endocrine: Denies: Fatigue, Heat or cold intolerance Gastrointestinal: Reports: Abdominal pain, Nausea, Vomiting Genitourinary: Denies: Incontinence, Retention Musculoskeletal: Denies: Arthralgia, Back pain Skin: Denies: Bruising, Change in color Neurological: Denies: Abnormal gait, Confusion, Headache, Seizure Psychiatric: Denies: Anxiety Hematological/Lymphatic: Denies: Anemia, Blood Clots Past Medical History - SOCIAL HISTORY Smoking Status: Current every day smoker - RESPIRATORY Hx Respiratory Disorders: Yes Comment:: smoker 1/2 pack/day, is cutting back, trying to quit - CARDIOVASCULAR Hx Cardio Disorders: Yes Hx Abnormal EKG: No Hx Chest Pain: No Hx Deep Vein Thrombosis: No Hx Edema: No Hx Hypertension: Yes Hx Irregular Heartbeat: No Hx Palpitations: No Hx Coronary Artery Disease: Yes ("heart is good, plumbing is bad") Hx Coronary Stent: Yes (2009) - NEURO Hx Neuro Disorders: No - GI Hx GI Disorders: Yes Hx Abdominal Pain: Yes (cramping) Hx Diverticulitis: Yes (06/28/17) Hx Nausea/Vomiting: Yes Hx Rectal Bleeding: No Hx Wt Loss/Wt Gain: Yes (26 lbs in 2 months) Comment:: 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 - Hx Genitourinary Disorders: Yes Comment:: hysterectomy - ENDOCRINE Hx Endocrine Disorders: No - MUSCULOSKELETAL Hx Musculoskeletal Disorders: No - PSYCH Hx Psych Problems: Yes Hx Anxiety: Yes Hx Depression: Yes - HEMATOLOGY/ONCOLOGY Hx Hematology/Oncology Disorders: No Family Medical History Hx Cancer: Father *Cancer Comment: lung-brain Hx Depression: Brother/Sister *Depression Comment: brother Hx HTN: Father Hx Resp Disorders: Mother *Resp Comment: copd Physical Exam - General General Appearance: Alert, Oriented x3, Cooperative Limitations: No limitations - Head Head exam: Atraumatic, Normocephalic, Normal inspection Head exam detail: negative: Abrasion, Contusion, Etienne's sign, General tenderness, Hematoma, Laceration - Eye Eye exam: Normal appearance. negative: Conjunctival injection, Periorbital swelling, Periorbital tenderness - ENT Ear exam: negative: Auricular hematoma, Auricular trauma Nasal Exam: negative: Active bleeding, Discharge, Dried blood, Foreign body Mouth exam: negative: Drooling, Laceration, Muffled voice, Tongue elevation - Neck Neck exam: Normal inspection. negative: Meningismus, Tenderness - Respiratory Respiratory exam: Normal lung sounds bilaterally. negative: Rales, Respiratory distress, Rhonchi, Stridor - Cardiovascular Cardiovascular Exam: Regular rate, Normal rhythm, Normal heart sounds - GI/Abdominal GI/Abdominal exam: Soft, Tenderness, Other (Diffuse TTP on examination, no rebound or guarding present). negative: Rigid - Rectal Rectal exam: Deferred - exam: Deferred - Extremities Extremities exam: Normal inspection. negative: Calf tenderness, Pedal edema, Tenderness - Back Back exam: Denies: CVA tenderness (R), CVA tenderness (L) - Neurological Neurological exam: Alert, Normal gait, Oriented X3 - Psychiatric Psychiatric exam: Normal affect, Normal mood - Skin Skin exam: Normal color. negative: Abrasion Type of lesion: negative: abrasion Course Vital Signs 09/05/17 06:50 Temperature 97.7 F Pulse Rate [ 81 Pulse Ox Probe] Respiratory 20 Rate Blood Pressure 147/110 [Left Arm] Pulse Ox 96 - Reevaluation(s) Reevaluation #1: 09/05/17 08:02 Laboratory results reviewed, WBC 10.1 with 88% neutrophils. CO2 30 AG 17 Lab are otherwise grossly unremarkable for an acute process. CT notified that the patient is ready for imaging at this time. Patient reports improvement in her abdominal cramping symptoms as well. Reevaluation #2: 09/05/17 09:48 CT Abdomen and Pelvis: Dilated cecum/ascending colon, ? partial SBO recommend Sigmoidoscopy. Case was discussed with Dr. Montes and Dr. Mcclelland ([facility]), will initiate transfer for surgical evaluation. Patient and her family were updated on all results. Medical Decision Making - Lab Data Result diagrams: 09/05/17 06:50 09/05/17 06:50 Disposition Disposition: Transfer Clinical Impression: SBO (small bowel obstruction), Diverticulitis Disposition: Acute Care Hospital Transfer Transfer To: [facility] Reason For Transfer: Surgical evaluation Accepting Physician: Simon/Krystin Time Discussed w/Accepting Physician: 09:52 Condition: (2) Stable Forms: Patient Portal Access Time of Disposition: 09:52 Quality - Quality Measures Quality Measures: N/A - Blood Pressure Screening Does Patient Have Any of the Following: No Blood Pressure Classification: Hypertensive Reading Systolic Measurement: 155 Diastolic Measurement: 71 Screening for High Blood Pressure: < First Hypertensive BP, F/U Documented > [ G8950] First Hypertensive Follow-up Interventions: Referral to alternative/primary care provider.
[2017-09-05] MEDS ORDERED: 0.9 % SODIUM CHLORIDE 1000ML 1,000 ML IV SCH (07:00)
[2017-09-05 07:03] LABS: HEMATOCRIT 36.6 % (35.0-47.0); HEMOGLOBIN 11.3 gm/dl (11.6-16.0); MEAN CORPUSCULAR HEMOGLOBIN 28.1 pg (27-33); MEAN CORPUSCULAR HGB CONC 30.9 g/dl (32-36); MEAN PLATELET VOLUME 8.9 fl (7.4-10.4); PLATELET COUNT 557 K/uL (130-400); RED BLOOD COUNT 4.02 M/uL (3.80-5.40); RED CELL DISTRIBUTION WIDTH 14.4 % (11.5-14.5); WHITE BLOOD COUNT W/O DIFF 10.1 K/uL (4.2-12.2)
[2017-09-05] MEDS ORDERED: ACETAMINOPHEN 1,000 MG/100 ML BTL IVPB ONE (07:08)
[2017-09-05 07:21] LABS: ALB/GLOB RATIO 1.3 (1.1-1.8); ALBUMIN 3.8 g/dL (4.0-5.0); ALKALINE PHOSPHATASE 115 U/L (35-104); ALT/SGPT 12 U/L (<33); AST/SGOT 14 U/L (10.0-35.0); BLOOD UREA NITROGEN 4 mg/dL (8-23); CREATININE 0.4 mg/dL (0.5-0.9); EST GLOMERULAR FILTRATION RATE > 60 mL/min; GLUCOSE,RANDOM 126 mg/dL (74-109); LIPASE 24 U/L (13-60); TOTAL PROTEIN 6.8 g/dL (6.6-8.7)
[2017-09-05] MEDS ORDERED: SOD CHLOR 0.9% WITH KCL 40MEQ 40 MEQ/1,000 ML IV.SOLN IV ONE (08:27)
[2017-09-05] MEDS ORDERED: HYOSCYAMINE SULFATE ODT 0.125 MG TAB.SUBL SL ONE (08:38)
--- NOTE | 2017-09-06 08:08 | ULTRASOUND REPORT ---
DATE: at 8:15 a.m. EXAM: EMERGENCY CT OF THE ABDOMEN AND PELVIS WITH CONTRAST. HISTORY: Abdominal pain. Possible obstruction. Hysterectomy. TECHNIQUE: Axial CT scan of the abdomen and pelvis performed following the intravenous administration of 100 mL of Omnipaque 300 as the intravenous contrast. No oral contrast was utilized at the referring physician's request. COMPARISON: CT of the abdomen and pelvis dated 08/08/2017. FINDINGS: No calcified gallstones are seen within the gallbladder. Mild, diffuse fatty infiltration of the liver with no focal hepatic mass evident. No definite splenic, adrenal, pancreatic, or renal mass evident. There is focal scarring in the lower pole of the left kidney as before which may be sequela of chronic atrophic pyelonephritis. There again appears to be some mild ectasia of the infrarenal abdominal aorta similar to before measuring about 2.3 cm; essentially unchanged. There also again appears to be focal high-grade stenosis in the common iliac arteries bilaterally as previously noted. Since the prior examination, a percutaneously placed pigtail drainage catheter has been placed into the region of the previously seen peridiverticular abscess in the left side of the pelvis. Reduction in the abscess in the interval, although still some residual extraluminal soft tissue density in this region. No definite extraluminal air identified today. The segment of involved sigmoid colon is slightly more narrow than proximal to the involved segment and may be causing a component of relative obstruction. Caliber of the involved segment of colon is approximately 2.9 cm and does is not distended with fluid density stool, whereas just proximal to this the lower descending colon is filled with fluid stool and measures about 3.3 cm. There is mild diverticulosis scattered elsewhere in the left side of the colon with the colon largely filled with fluid stool throughout the remainder of the colon proximal to the sigmoid and with a maximum caliber in the cecum measuring up to approximately 6.9 cm. There is a small amount of free fluid in the pelvis distant from the site of the peridiverticular abscess, with this mild amount of free fluid similar to that seen before. No free air identified. The uterus is not identified consistent with the surgical history. Mild degenerative changes in the lumbar spine. IMPRESSION: 1. POSTOPERATIVE HYSTERECTOMY. 2. PERCUTANEOUSLY PLACED DRAINAGE CATHETER IN THE REGION OF THE PERIDIVERTICULAR ABSCESS EVIDENT ON THE PRIOR 08/08/2017 EXAMINATION WITH DECREASE IN ABSCESS EVIDENT, ALTHOUGH STILL SOME REMAINING. A SMALL AMOUNT OF FREE FLUID IN THE PELVIS IS SIMILAR TO BEFORE. 3. SEGMENT OF PRESUMED DIVERTICULITIS MAY REPRESENT A COMPONENT OF RELATIVE OBSTRUCTION OF THE COLON WITH NO LIQUID STOOL DISTENDING THIS SEGMENT OF THE COLON, WHEREAS PROXIMAL TO THIS THERE IS LIQUID STOOL THROUGHOUT THE REMAINDER OF THE COLON. THIS SEGMENT OF COLON PRESUMABLY REPRESENTS RESIDUAL DIVERTICULITIS, ALTHOUGH NEOPLASM CANNOT BE EXCLUDED, AND SIGMOIDOSCOPY IS SUGGESTED. 4. ECTASIA OF THE INFRARENAL ABDOMINAL AORTA AND LIKELY FOCAL HIGH-GRADE STENOSIS IN BOTH COMMON ILIACS PREVIOUSLY NOTED. 5. FOCAL SCAR IN THE LOWER POLE OF THE LEFT KIDNEY PREVIOUSLY NOTED, MAY BE SEQUELA OF CHRONIC ATROPHIC PYELONEPHRITIS. 6. MILD, DIFFUSE FATTY INFILTRATION OF THE LIVER. JOB NUMBER: [id number] [facility]
== END 2017-09-05 10:21 | disposition short-term general hospital (02) ==
LOC: ER 06:35
DX: K56.609 Unspecified intestinal obstruction, unspecified as to partial versus complete obstruction (principal); K57.92 Diverticulitis of intestine, part unspecified, without perforation or abscess without bleeding; R11.2 Nausea with vomiting, unspecified; I10 Essential (primary) hypertension; F17.210 Nicotine dependence, cigarettes, uncomplicated
CPT/HCPCS: 99285 ×2; 96376; 96365; 96366; 96375; 96361; 83690; 80053; 85027; 74177; Q9967; J1980; J1885; J2405; J7030

== ENCOUNTER 2017-09-23 21:04 | Emergency (ER) | payer MEDICAID ==
[2017-09-23] MEDS ORDERED: 0.9 % SODIUM CHLORIDE 1,000 ML BAG IV ONE ×2 (21:38→22:24)
[2017-09-23 21:54] LABS: BASO % 0.3 % (0-6); EOS % 1.9 % (0-6); GRAN % 77.9 % (47-80); HEMATOCRIT 32.3 % (35.0-47.0); HEMOGLOBIN 10.3 gm/dl (11.6-16.0); LYMPH % 11.3 % (16-45); MEAN CELL VOLUME 89.7 fl (81-97); MEAN CORPUSCULAR HEMOGLOBIN 28.6 pg (27-33); MEAN CORPUSCULAR HGB CONC 31.9 g/dl (32-36); MEAN PLATELET VOLUME 9.5 fl (7.4-10.4); MONO % 8.6 % (0-9); PLATELET COUNT 577 K/uL (130-400); RED CELL DISTRIBUTION WIDTH 15.3 % (11.5-14.5); WHITE BLOOD COUNT W/O DIFF 12.3 K/uL (4.2-12.2)
[2017-09-23 22:04] LABS: URINE APPEARANCE CLEAR; URINE BILIRUBIN NEGATIVE (NEGATIVE); URINE BLOOD NEGATIVE (NEGATIVE); URINE COLOR YELLOW; URINE GLUCOSE (UA) NEGATIVE (NEGATIVE); URINE KETONE NEGATIVE (NEGATIVE); URINE LEUKOCYTE ESTERASE NEGATIVE (NEGATIVE); URINE NITRITE NEGATIVE (NEGATIVE); URINE PROTEIN TRACE (NEGATIVE); URINE UROBILINOGEN 0.2 E.U./dL (0.20 - 1.00)
[2017-09-23 22:06] LABS: BILIRUBIN,TOTAL 0.2 mg/dL (0.2-1.0); CREATININE 2.4 mg/dL (0.5-0.9)
[2017-09-23 22:07] LABS: TOTAL PROTEIN 7.3 g/dL (6.6-8.7)
[2017-09-23 22:11] LABS: ALB/GLOB RATIO 1.3 (1.1-1.8); ALBUMIN 4.1 g/dL (4.0-5.0)
[2017-09-23 22:14] LABS: NTpro B-NATRIURETIC PEPTIDE 767.9 pg/mL (<125)
[2017-09-23 22:49] LABS: CREATININE 2.3 mg/dL (0.5-0.9)
--- NOTE | 2017-09-24 00:04 | Emergency Department Record ---
History of Present Illness - General Chief Complaint: Hypotension Stated Complaint: LOW BP Time Seen by Provider: 09/23/17 21:12 Source: Patient, Family, RN notes reviewed, Old records reviewed Mode of Arrival: Ambulatory Limitations: No limitations - History of Present Illness Initial Comments: pt came in for hypotension and dizziness. she has had a rather extensive hx recently with diverticulitis w abscess, drain placed then surgery with an ileostomy now in place. she has been slowly recovering. MD Complaint: Dizziness, Lightheadedness Onset/Timin -: Days(s) Timing: Gradual onset Description: Lightheadedness, Nausea History of Same: No Improves With: Remaining still Worsens With: Nothing Associated Symptoms: Weakness - [place] Coma Scale Eye Response: (4) Open spontaneously Motor Response: (6) Obeys commands Verbal Response: (5) Oriented [place] Total: 15 - Symptoms of Stroke Symptoms of stroke: Dizziness Baseline State: Baseline State - Related Data Home Medications Medication Instructions Recorded Confirmed Last Taken Buspirone HCl [Buspar] 7.5 mg PO DAILY 09/23/17 09/23/17 Unknown Potassium Chloride [Klor-Con M20] 20 meq PO DAILY 09/23/17 09/23/17 Unknown Allergies Allergy/AdvReac Type Severity Reaction Status Date / Time cephalexin monohydrate Allergy Severe HIVES Unverified 08/26/17 10:33 [From Keflex] morphine Allergy Severe ANAPHYLAXIS Verified 08/01/17 11:07 codeine Allergy Intermediate NAUSEA AND Verified 08/01/17 11:07 VOMITING moxifloxacin [From Avelox] Allergy HIVES Unverified 08/26/17 10:32 Travel Screening - Travel/Exposure Within Last 30 Days Have you traveled within the last 30 days?: No - Travel Symptoms Symptom Screening: None Review of Systems Reviewed: No additional complaints except as noted below Constitutional: Reports: As per HPI. Denies: Chills, Fever, Malaise, Night sweats, Weakness, Weight change Eyes: Reports: As per HPI. Denies: Eye discharge, Eye pain, Photophobia, Vision change ENT: Reports: As per HPI. Denies: Congestion, Dental pain, Ear pain, Epistaxis , Hearing loss, Throat pain Respiratory: Reports: As per HPI. Denies: Cough, Dyspnea, Hemoptysis, Stridor, Wheezes Cardiovascular: Reports: As per HPI. Denies: Arrhythmia, Chest pain, Dyspnea on exertion, Edema, Murmurs, Orthopnea, Palpitations, Paroxysmal nocturnal dyspnea, Rheumatic Fever, Syncope Endocrine: Reports: As per HPI. Denies: Fatigue, Heat or cold intolerance, Polydipsia, Polyuria Gastrointestinal: Reports: As per HPI. Denies: Abdominal pain, Constipation, Diarrhea, Hematemesis, Hematochezia, Melena, Nausea, Vomiting Genitourinary: Reports: As per HPI, Other (decreased urination). Denies: Abnormal menses, Discharge, Dyspareunia, Dysuria, Frequency, Hematuria, Incontinence, Retention, Urgency Musculoskeletal: Reports: As per HPI. Denies: Arthralgia, Back pain, Gout, Joint swelling, Myalgia, Neck pain Skin: Reports: As per HPI. Denies: Bruising, Change in color, Change in hair/ nails, Lesions, Pruritus, Rash Neurological: Reports: As per HPI, Weakness. Denies: Abnormal gait, Confusion, Headache, Numbness, Paresthesias, Seizure, Tingling, Tremors, Vertigo Psychiatric: Reports: As per HPI. Denies: Anxiety, Auditory hallucinations, Depression, Homicidal thoughts, Suicidal thoughts, Visual hallucinations Hematological/Lymphatic: Reports: As per HPI, Anemia. Denies: Blood Clots, Easy bleeding, Easy bruising, Swollen glands Past Medical History - SOCIAL HISTORY Smoking Status: Current every day smoker Alcohol Use: None - RESPIRATORY Hx Respiratory Disorders: Yes Comment:: smoker 1/2 pack/day, is cutting back, trying to quit - CARDIOVASCULAR Hx Cardio Disorders: Yes Hx Abnormal EKG: No Hx Chest Pain: No Hx Deep Vein Thrombosis: No Hx Edema: No Hx Hypertension: Yes Hx Irregular Heartbeat: No Hx Palpitations: No Hx Coronary Artery Disease: Yes ("heart is good, plumbing is bad") Hx Coronary Stent: Yes (2009) - NEURO Hx Neuro Disorders: No - GI Hx GI Disorders: Yes Hx Abdominal Pain: Yes (cramping) Hx Diverticulitis: Yes (06/28/17) Hx Nausea/Vomiting: Yes Hx Rectal Bleeding: No Hx Wt Loss/Wt Gain: Yes (45 lbs 3 months (09/16)) Comment:: 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 - Hx Genitourinary Disorders: Yes Comment:: hysterectomy - ENDOCRINE Hx Endocrine Disorders: No - MUSCULOSKELETAL Hx Musculoskeletal Disorders: No - PSYCH Hx Psych Problems: Yes Hx Anxiety: Yes Hx Depression: Yes - HEMATOLOGY/ONCOLOGY Hx Hematology/Oncology Disorders: No Family Medical History Any Significant Family History?: Yes Hx Cancer: Father *Cancer Comment: lung-brain Hx Depression: Brother/Sister *Depression Comment: brother Hx HTN: Father Hx Resp Disorders: Mother *Resp Comment: copd Physical Exam - General General Appearance: Alert, Oriented x3, Cooperative, Mild distress - Head Head exam: Normal inspection - Eye Eye exam: Normal appearance, PERRL, EOMI Pupils: Normal accommodation - ENT ENT exam: Normal exam, Mucous membranes moist, Normal external ear exam, Normal orophraynx Ear exam: Normal external inspection. negative: External canal tenderness Nasal Exam: Normal inspection. negative: Discharge, Sinus tenderness Mouth exam: Normal external inspection, Tongue normal Teeth exam: Normal inspection. negative: Dental caries Throat exam: Normal inspection. negative: Tonsillar erythema, Tonsillar exudate - Neck Neck exam: Normal inspection, Full ROM. negative: Tenderness - Respiratory Respiratory exam: Normal lung sounds bilaterally. negative: Respiratory distress - Cardiovascular Cardiovascular Exam: Regular rate, Normal rhythm, Normal heart sounds - GI/Abdominal GI/Abdominal exam: Soft, Normal bowel sounds. negative: Tenderness - Rectal Rectal exam: Deferred - exam: Deferred - Extremities Extremities exam: Normal inspection, Full ROM, Normal capillary refill. negative: Tenderness - Back Back exam: Reports: Normal inspection, Full ROM. Denies: Muscle spasm, Rash noted, Tenderness - Neurological Neurological exam: Alert, CN II-XII intact, Normal gait, Oriented X3 - Psychiatric Psychiatric exam: Normal affect, Normal mood - Skin Skin exam: Dry, Intact, Normal color, Warm Course Vital Signs 09/23/17 09/23/17 09/23/17 21:09 21:30 22:00 Temperature 97.6 F Pulse Rate [ 81 73 67 Pulse Ox Probe] Respiratory 28 H 22 22 Rate Blood Pressure 105/66 98/53 110/67 [Left Arm] Pulse Ox 96 98 100 09/23/17 09/23/17 23:05 23:36 Temperature Pulse Rate [ 74 79 Pulse Ox Probe] Respiratory 18 20 Rate Blood Pressure 123/62 123/58 [Left Arm] Pulse Ox 100 100 Medical Decision Making - Lab Data Result diagrams: 09/23/17 21:45 09/23/17 22:24 Lab Results 09/23/17 09/23/17 09/23/17 Range/Units 21:45 21:45 21:58 WBC 12.3 H (4.2-12.2) K/uL RBC 3.60 L (3.80-5.40) M/uL Hgb 10.3 L (11.6-16.0) gm/dl Hct 32.3 L (35.0-47.0) % MCV 89.7 (81-97) fl MCH 28.6 (27-33) pg MCHC 31.9 L (32-36) g/dl RDW 15.3 H (11.5-14.5) % Plt Count 577 H (130-400) K/uL MPV 9.5 (7.4-10.4) fl Gran % 77.9 (47-80) % Lymphocytes % 11.3 L (16-45) % Monocytes % 8.6 (0-9) % Eosinophils % 1.9 (0-6) % Basophils % 0.3 (0-6) % Sodium 129 L (136-145) mmol/L Potassium 5.9 H (3.4-4.5) mmol/L Chloride 91 L (98-107) mmol/L Carbon Dioxide 16.0 L (22-29) mmol/L Anion Gap 22.0 H (7-16) BUN 31 H (8-23) mg/dL Creatinine 2.4 H (0.5-0.9) mg/dL Estimated GFR 22 mL/min Random Glucose 112 H (74-109) mg/dL Calcium 9.2 (8.8-10.2) mg/dL Total Bilirubin 0.20 (0.2-1.0) mg/dL AST 16 (10.0-35.0) U/L ALT 16 (<33) U/L Alkaline Phosphatase 110 H (35-104) U/L NT-Pro-B Natriuret Pep 767.90 H (<125) pg/mL Total Protein 7.3 (6.6-8.7) g/dL Albumin 4.1 (4.0-5.0) g/dL Globulin 3.2 (1.4-4.8) gm/dL Albumin/Globulin Ratio 1.3 (1.1-1.8) Urine Color Yellow Urine Appearance Clear Urine pH 5.5 (5.0-8.0) Ur Specific [place] 1.025 (1.002-1.030) Urine Protein Trace H (NEGATIVE) Urine Glucose (UA) Negative (NEGATIVE) Urine Ketones Negative (NEGATIVE) Urine Blood Negative (NEGATIVE) Urine Nitrite Negative (NEGATIVE) Urine Bilirubin Negative (NEGATIVE) Urine Urobilinogen 0.2 (0.20 - 1.00) E.U./dL Ur Leukocyte Esterase Negative (NEGATIVE) 09/23/17 Range/Units 22:24 WBC (4.2-12.2) K/uL RBC (3.80-5.40) M/uL Hgb (11.6-16.0) gm/dl Hct (35.0-47.0) % MCV (81-97) fl MCH (27-33) pg MCHC (32-36) g/dl RDW (11.5-14.5) % Plt Count (130-400) K/uL MPV (7.4-10.4) fl Gran % (47-80) % Lymphocytes % (16-45) % Monocytes % (0-9) % Eosinophils % (0-6) % Basophils % (0-6) % Sodium 131 L (136-145) mmol/L Potassium 5.4 H (3.4-4.5) mmol/L Chloride 95 L (98-107) mmol/L Carbon Dioxide 16.0 L (22-29) mmol/L Anion Gap 20.0 H (7-16) BUN 30 H (8-23) mg/dL Creatinine 2.3 H (0.5-0.9) mg/dL Estimated GFR 23 mL/min Random Glucose 107 (74-109) mg/dL Calcium 8.5 L (8.8-10.2) mg/dL Total Bilirubin (0.2-1.0) mg/dL AST (10.0-35.0) U/L ALT (<33) U/L Alkaline Phosphatase (35-104) U/L NT-Pro-B Natriuret Pep (<125) pg/mL Total Protein (6.6-8.7) g/dL Albumin (4.0-5.0) g/dL Globulin (1.4-4.8) gm/dL Albumin/Globulin Ratio (1.1-1.8) Urine Color Urine Appearance Urine pH (5.0-8.0) Ur Specific [place] (1.002-1.030) Urine Protein (NEGATIVE) Urine Glucose (UA) (NEGATIVE) Urine Ketones (NEGATIVE) Urine Blood (NEGATIVE) Urine Nitrite (NEGATIVE) Urine Bilirubin (NEGATIVE) Urine Urobilinogen (0.20 - 1.00) E.U./dL Ur Leukocyte Esterase (NEGATIVE) Disposition Disposition: Transfer Clinical Impression: Hyperkalemia Acute renal failure Qualifiers: Acute renal failure type: unspecified Qualified Code(s): N17.9 - Acute kidney failure, unspecified Disposition: [facility] Transfer Transfer To: [facility] Reason For Transfer: needs specialists Accepting Physician: dr renteria Time Discussed w/Accepting Physician: 00:17 Quality - Quality Measures Quality Measures: N/A - Blood Pressure Screening Does Patient Have Any of the Following: No Blood Pressure Classification: Pre-Hypertensive BP Reading Systolic Measurement: 123 Diastolic Measurement: 58 Screening for High Blood Pressure: < Pre-Hypertensive BP, F/U Documented > [ [id number]] Pre-Hypertensive Follow-up Interventions: Follow-up with rescreen every year.
[2017-09-24] MEDS ORDERED: PROMETHAZINE HCL 6.25 MG in 0.9 % SODIUM CHLORIDE 100ML 100 ML IVPB ONE (00:25)
== END 2017-09-24 00:59 | disposition short-term general hospital (02) ==
LOC: ER 21:04
DX: N17.9 Acute kidney failure, unspecified (principal); E87.5 Hyperkalemia; R42 Dizziness and giddiness; R11.0 Nausea; I10 Essential (primary) hypertension; F17.210 Nicotine dependence, cigarettes, uncomplicated
CPT/HCPCS: 80048; 80053; 81003; 83880; 85025; 96374; 99285; J2550; J7030